=== PATIENT | male | born 1960 ===

== ENCOUNTER 2016-08-21 05:48 | Day surgery (SDC) | payer BC ==
[~2016-08-21 05:48] MED LIST: ALEVE220 MG PO; ATORVASTATIN CA20 MG PO; FISH OIL1000 MG PO; LISINOPRIL40 MG PO; OMEPRAZOLE20 M1 PO
--- NOTE | 2016-08-21 08:31 | Provider's Discharge Care Plan ---
Problem, Goal, Plan Problem List 1. GERD (gastroesophageal reflux disease)
--- NOTE | 2016-08-21 08:31 | Provider's Discharge Care Plan ---
Problem, Goal, Plan Problem List 1. GERD (gastroesophageal reflux disease)
[2016-08-21 09:17] VITALS: BP 135/87
--- NOTE | 2016-08-21 09:22 | OPERATIVE REPORT ---
DATE OF SURGERY: 08/21/2016 SURGEON: Emigdio Herrmann MD PREOPERATIVE DIAGNOSIS: 1. Gastroesophageal reflux disease POSTOPERATIVE DIAGNOSIS: 1. 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 Esophagogastroduodenoscopy with biopsies INDICATIONS: The patient is a 56-year-old man presenting with ongoing heartburn for many years, treated with proton pump inhibitors. He has had nocturnal regurgitation problems. SURGICAL TECHNIQUE: The patient was taken to the endoscopy suite, where total IV general was administered and the patient was placed in the left lateral decubitus position. A well-lubricated endoscope was inserted down the esophagus, into the stomach under direct vision. The squamocolumnar junction appeared to show irregularity, with patches of squamous and adenomatous tissue intermingled, but extending only about 2 cm above the muscular sphincter. The gastric body and duodenum were examined and appeared to be normal. A retroflexed view demonstrated a mild tendency for mucosal sliding, but no true hernia pouch. A biopsy was taken from the antrum for Helicobacter testing. On withdrawal, biopsies were taken from each quadrant of the squamocolumnar junction, looking for Saucedo change. The patient left in good condition, and no intraoperative complications were encountered.
== END 2016-08-21 09:41 | disposition home or self-care (01) ==
LOC: OR SRH 05:48 → SCU SRH 06:09 → OR SRH 07:30
PROVIDERS: Surgery
PROC: 0DB68ZX Excision of Stomach, Via Natural or Artificial Opening Endoscopic, Diagnostic (ICD-10-PCS; principal; 2016-08-21 07:30)
PROC: 0DB38ZX Excision of Lower Esophagus, Via Natural or Artificial Opening Endoscopic, Diagnostic (ICD-10-PCS; principal; 2016-08-21 07:30)
DX: K21.9 Gastro-esophageal reflux disease without esophagitis (principal); I10 Essential (primary) hypertension
CPT/HCPCS: 29229; 29240; 50004; 60001; 82943; 83526; 90705